=== PATIENT | female | born 1950 | race Caucasian/White ===

== ENCOUNTER 2017-07-19 00:42 | Inpatient (IN) | payer OTHER ==
[2017-07-19] VITALS (7 sets, daily range): BP systolic 89–136; BP diastolic 41–76; Ht 165.1 cm; Wt 59.0 kg
[~2017-07-19] VITALS: Ht 165.1 cm; Wt 59.0 kg
[2017-07-19 02:47] LABS: BASOPHIL % 2.5 % (0-2); PLATELET COUNT 458 x10^3mcL (130-400); RED CELL DISTRIBUTION WIDTH 15.4 % (11.5-14.5)
[2017-07-19 02:53] LABS: CALCIUM 9.3 mg/dL (8.5-10.1); CARBON DIOXIDE 24.8 mmol/L (21-32); POTASSIUM SERUM 3.7 mmol/L (3.5-5.1)
[2017-07-19 02:57] LABS: BILIRUBIN TOTAL 0.43 mg/dL (0.20-1.00); TOTAL PROTEIN, SERUM 7.4 g/dL (6.4-8.2)
[2017-07-19 02:58] LABS: ALBUMIN 3.2 g/dL (3.4-5.0)
[2017-07-19 06:31] LABS: T3 TOTAL 1.51 ng/mL
[2017-07-19 07:03] LABS: CHOLESTEROL/HDL RATIO 4.7; MAGNESIUM 2.4 mg/dL (1.8-2.4); PHOSPHOROUS 2.7 mg/dL (2.5-4.9)
[2017-07-19 07:04] LABS: FREE T4 1.17 ng/dL (0.76-1.46); FREE THYROXINE INDEX 3.5 ug/dL (1.4-4.5)
[2017-07-19 12:10] LABS: microscopic required? NO
[2017-07-19 12:52] LABS: UA SPECIFIC GRAVITY 1.015 (1.005-1.035); urine erythrocyte NEGATIVE (NEGATIVE)
[2017-07-20 01:06] VITALS: BP 116/55
[2017-07-20 05:11] VITALS: BP 115/56
[2017-07-20 06:12] LABS: CALCIUM 8.2 mg/dL (8.5-10.1); CARBON DIOXIDE 27.1 mmol/L (21-32)
[2017-07-20 06:19] LABS: BASOPHIL % 0.8 % (0-2); PLATELET COUNT 360 x10^3mcL (130-400)
[2017-07-20 06:54] LABS: RED CELL DISTRIBUTION WIDTH 15.4 % (11.5-14.5)
[2017-07-20 10:07] VITALS: BP 124/68
[2017-07-20 13:58] VITALS: BP 141/67
[2017-07-20 17:51] VITALS: BP 111/67
[2017-07-20 20:34] VITALS: BP 109/54
[2017-07-21 05:22] VITALS: BP 133/56
[2017-07-21 09:26] VITALS: BP 132/62; BP 142/79
[2017-07-21 12:40] VITALS: BP 127/60
[2017-07-21 17:31] VITALS: BP 108/57
[2017-07-21 21:15] VITALS: BP 117/54
[2017-07-22 05:35] VITALS: BP 118/53
[2017-07-22 06:38] LABS: CALCIUM 8.4 mg/dL (8.5-10.1); CARBON DIOXIDE 25.5 mmol/L (21-32); CHLORIDE SERUM 111 mmol/L (98-107); CREATININE SERUM 0.9 mg/dL (0.6-1.0); GFR1 > 60 mL/min; GLUCOSE SERUM 81 mg/dL (74-106); POTASSIUM SERUM 3.7 mmol/L (3.5-5.1); SODIUM SERUM 144 mmol/L (136-145)
[2017-07-22 06:40] LABS: PLATELET COUNT 327 x10^3mcL (130-400)
[2017-07-22 07:02] LABS: RED CELL DISTRIBUTION WIDTH 15.8 % (11.5-14.5)
[2017-07-22 09:00] VITALS: BP 124/58
[2017-07-22] MEDS ORDERED: WELLBUTRIN XL300 M1 PO (13:40)
[2017-07-22] MEDS ORDERED: PROZ10 PO (13:41)
[2017-07-22] MEDS ORDERED: ABILIFY20 M1 PO (13:41)
[2017-07-22] MEDS ORDERED: DITROPAN XL10 MG PO (13:42)
[2017-07-22] MEDS ORDERED: OMEPRAZOLE40 M1 PO (13:42)
[2017-07-22] MEDS ORDERED: ECO81 PO (13:45)
[2017-07-22] MEDS ORDERED: PEP20 PO (13:47)
[2017-07-22] MEDS ORDERED: LIPITOR80 MG PO (13:48)
[2017-07-22] MEDS ORDERED: BACLOFEN10 MG PO (13:57)
[2017-07-22] MEDS ORDERED: IPRATROPIUM BROM3 M2 HHN (14:11)
[2017-07-22 14:55] VITALS: BP 124/58
== END 2017-07-22 15:39 | disposition home health service (06) | DRG 913 ==
LOC: ED 00:42 → DU 05:21 → MU 05:21 → DU 06:35 → MU 07-21 19:40
PROVIDERS: Emergency Medicine; Family Medicine; ADMIT Family Medicine
DX: S09.90XA Unspecified injury of head, initial encounter (principal); N17.0 Acute kidney failure with tubular necrosis; I69.354 Hemiplegia and hemiparesis following cerebral infarction affecting left non-dominant side; E44.1 Mild protein-calorie malnutrition; E86.0 Dehydration; E83.51 Hypocalcemia; J44.9 Chronic obstructive pulmonary disease, unspecified; I48.0 Paroxysmal atrial fibrillation; M25.551 Pain in right hip; E78.5 Hyperlipidemia, unspecified; E02 Subclinical iodine-deficiency hypothyroidism; M54.40 Lumbago with sciatica, unspecified side; R45.1 Restlessness and agitation; F41.8 Other specified anxiety disorders; Z68.21 Body mass index [BMI] 21.0-21.9, adult; W18.39XA Other fall on same level, initial encounter; Y93.89 Activity, other specified; Y92.018 Other place in single-family (private) house as the place of occurrence of the external cause; Z87.891 Personal history of nicotine dependence
CPT/HCPCS: 83880; 84439; 94150; 97110-GP; 97116-GP; 97530-GP; J2405; J3010; J7030; J7620; J8597; Q0092

== ENCOUNTER 2019-06-08 12:49 | Inpatient (IN) | payer OTHER ==
[~2019-06-08] VITALS: Ht 165.1 cm; Wt 60.8 kg
[~2019-06-08 12:49] MED LIST: ABILIFY20 M1 PO; BACLOFEN10 MG PO; DITROPAN XL10 MG PO; ECO81 PO; IPRATROPIUM BROM3 M2 HHN; LIPITOR80 MG PO; OMEPRAZOLE40 M1 PO; PEP20 PO; PROZ10 PO; WELLBUTRIN XL300 M1 PO
--- NOTE | 2019-06-08 12:57 | NUR ---
PT WHEELCHAIRED TO ACCOMPANIED BY HER
--- NOTE | 2019-06-08 13:08 | NUR ---
PATIENT AAOX4 PRESENTS TO THE ED WITH C/O RUQ FLANK PAIN X 2 DAYS. PT STS THAT SHE ACCIDENTALLY "INHALED SOME POPCORN BUT IT WENT DOWN THE WRONG PIPE AND HAS BEEN IN PAIN EVER SINCE". PT SATS AT 80'S BECAUSE SHE SAYS SHE HOLDS HER BREATH DUE TO THE AMOUNT OF PAIN SHE IS IN. PT ALSO HAS A HX OF COPD BUT IS NOT 02 DEPENDENT. ABD SOFT, NON DISTENDED BUT TENDER ON PALPATION. SKIN DRY, PSORIASIS NOTED, ORAL MEMBRANES DRY. PT PLACED ON ALL MONITORS FOR FURTHER OBSERVATION. RAMURNEY PLACED IN LOW POSITION, SIDE RAILS UP, CALL LIGHT WITHIN REACH.
[2019-06-08 14:04] LABS: microscopic required? NO
[2019-06-08 14:28] LABS: PLATELET COUNT 358 x10^3mcL (130-400)
[2019-06-08 14:29] LABS: urine erythrocyte NEGATIVE (NEGATIVE)
--- NOTE | 2019-06-08 14:29 | NUR ---
MEDICATED PATIENT PER MD ORDERS-- SEE EMR
[2019-06-08 14:46] LABS: RED CELL DISTRIBUTION WIDTH 18.1 % (11.5-14.5)
[2019-06-08 14:54] LABS: AMPHETAMINE QUAL UR POSITIVE (See below)
[2019-06-08 15:19] LABS: CALCIUM 7.7 mg/dL (8.5-10.1); CARBON DIOXIDE 22.1 mmol/L (21-32); CHLORIDE SERUM 101 mmol/L (98-107); CREATININE SERUM 1.1 mg/dL (0.6-1.0); GLUCOSE SERUM 101 mg/dL (74-106); POTASSIUM SERUM 4.3 mmol/L (3.5-5.1); SODIUM SERUM 135 mmol/L (136-145)
[2019-06-08 15:37] LABS: ALKALINE PHOSPHATASE 105 U/L (46-116); ALT/SGPT 6 U/L (14-59); AST/SGOT 13 U/L (15-37); BILIRUBIN TOTAL 0.81 mg/dL (0.20-1.00); CHOLESTEROL 175 mg/dL (<200); LIPASE 4 IU/L (73-393); T4(THYROXINE) 6.1 ug/dL (4.7-13.3)
[2019-06-08 15:44] LABS: ALBUMIN 2.1 g/dL (3.4-5.0); AMYLASE 18 U/L (25-115); HDL CHOLESTEROL 95 mg/dL (40-60); TOTAL PROTEIN, SERUM 6.1 g/dL (6.4-8.2)
[2019-06-08 15:45] LABS: MONOCYTE 9 % (0-7); SEGMENTED NEUTROPHILS 87 % (37-75)
[2019-06-08 15:46] LABS: rbc morphology (normal/abnorm) NORMAL (NORMAL)
[2019-06-08 15:48] LABS: PLATELET MORPHOLOGY PLATELETS NORMAL
--- NOTE | 2019-06-08 15:50 | NUR ---
REPORT GIVEN TO AILEEN TAYLOR FOR CONTINUED CARE OF PATIENT. MD AWAITING RESULTS OF D-DIMER PRIOR TO TRANSPORT.
--- NOTE | 2019-06-08 17:00 | NUR ---
PATIENT RESTING ON GURNEY- NO SS OF DISTRESS NOTED. PT VOICES NO NEEDS AT THIS TIME. WILL CONTINUE TO MONITOR.
[2019-06-08 17:33] VITALS: BP 103/55
--- NOTE | 2019-06-08 18:26 | NUR ---
PATIENT IV BEEPING.-- PTS LINE WAS BLOWN. NEW IV STARTED. OLD LINE DC'D. WILL CONTINUE TO MONITOR.
--- NOTE | 2019-06-08 18:53 | NUR ---
CT SPOKE W/ DR. BAUER ABOUT INFILTRATED IV W/ POSSIBLE EXTRAVASATION OF CONTRAST. HE IS ORDERING ELBOW X-RAY PER HER RECOMMENDATION.
--- NOTE | 2019-06-08 19:16 | NUR ---
REPORT GIVEN TO AILEEN MORATAYA FOR CONTINUED CARE OF PATIENT.
--- NOTE | 2019-06-08 19:20 | NUR ---
PT NOTED 91 ON 3L O2 VIA NC, PT PLACED ON 6 L O2 VIA NC, O2 SAT NOW NOTED AT 94-95%, MD MADE AWARE. PT AWAKE AND ALERT, BREATHING EVEN AND UNLABORED. CM AND [address] IV FLUIDS RUNNING AT ORDERED RATE. IV PATENT WITH NO COMPLICATIONS. WILL CONTINUE TO MONITOR.
--- NOTE | 2019-06-08 20:45 | NUR ---
PT RESTING ON GURNEY WITH HOB RAISED. PT IN NAD, SPEECH REMAINS SLURRED BUT PT IS A&0X4, ANSWERING QUESTIONS APPROPRIATELY. BREATHING EVEN AND UNLABORED. CM AND [address] PT CURRENTLY ON 5L O2 VIA NC AND SATING AT 93-94%. PT IS CALM AND COOPERATIVE. IV FLUIDS RUNNING AT ORDERED RATE. WILL CONTINUE TO MONITOR.
--- NOTE | 2019-06-08 21:30 | NUR ---
PT REQUESTING TO USE BEDPAIN. PT ASSISTED ON AND OFF BEDPAN WITH NO INCIDENCES NOTED. PT MOVED UP IN BED TO POSITION OF COMFORT. PT RESTING ON GURNEY IN NAD, BREATHING EVEN AND UNLABORED. CM AND [address] WILL CONTINUE TO MONITOR. PT AWAKE AND ALERT.
--- NOTE | 2019-06-08 22:30 | NUR ---
PT SLEEPING BUT EASILY AROUSABLE. CM AND [address] PT A&0X4, SPEAKING FULL CLEAR SENTENCES. RESP E/U. WILL CONTINUE TO MONITOR.
--- NOTE | 2019-06-08 23:28 | NUR ---
CALLED AN UPDATE TO TISHA GALLAGHER FOR PT TO TRANSFER UPSTAIRS.
--- NOTE | 2019-06-08 23:59 | NUR ---
PT TRANSFERED TO TELE AT THIS TIME IN NAD, BREATHING EVEN AND UNLABORED. PT AWAKE AND ALERT. PT REMAINS ON 5L 02 VIA GA. PT TRANSFERED VIA [facility] BY MYSELF AND EMELINA EMT. PT VERBALIZED UNDERSTANDING OF PLAN OF CARE. AILEEN GILES AT BEDSIDE TO ASSUME CARE OF PT. PT BELONGINGS TAKEN WITH PT. IV FLUIDS ENDORSED TO TISHA GALLAGHER.
--- NOTE | 2019-06-09 00:10 | NUR ---
RECIEVED PT FROM ED NURSE. PT IN NO APPARENT DISTRESS. PT IS ABLE TO COMMUNICATE NEEDS. L SIDED WEAKNESS NOTED WITH LUE CONTRACTED. PER PT SHE HAD A STROKE BEFORE AND SHE HAD L SIDED WEAKNESS SINCE. NO FACIAL DROOPING NOTED. EQUAL CHEST RISE AND FALL. IV ON RFA IS INTACT AND PATENT. IV FLUIDS AND ZOSYN GIVEN AT THIS TIME. RT AT BEDSIDE FOR EKG. BED IS AT LOWEST SETTING. CALL LIGHT WITHIN REACH. RESOURCE NURSE AT BEDSIDE TO ADMIT PT.
[2019-06-09 00:37] VITALS: BP 118/51
--- NOTE | 2019-06-09 00:48 | NUR ---
RECEIVED PT FROM ER, PT ADMIT FOR PNA, HYPOXIA, PT IS A/O X4, VERBAL RESPONSIVE. PT HAS LEFT FACIAL DROOP DUE TO HX CVA. LUNG SOUND WHEEZING HUY. DENY ANY SOB AT THIS MOMENT, PT IS ON 3L/MIN O2 VIA NC. PO2 94%, PT IS ON TELE 19, SA, DENY ANY CHEST PAIN OR DISCOFORT, BOWEL SOUND PRESENT ALL 4 QUARANTS, NO DISTENTION, NO TENDER. PEDAL PULSE PRESENT BOTH FEET, NO EDEMA, IV AT RIGHT FA, NO LEAKING, NO INFILTRAITON. PT HAS LEFT SIDE WEAKNESS, LEFT ARM AND HAND IS CONTRACTED. ALL ADLS ASSIST, ALL NEED MET, CALL LIGHT IN REACH, WILL CONTINUE TO MONITOR.
--- NOTE | 2019-06-09 01:55 | NUR ---
PT IS RESTING IN BED WITH BOTH EYES CLOSED. BREATHING EVEN AND UNALBORED. NO SIGN OF DISTRESS NOTED. BED IS AT LOWEST SETTING. CALL LIGHT WIHTIN REACH. ON 3L NC. WILL CONTINUE TO MONITOR.
[2019-06-09 04:40] VITALS: BP 120/60
--- NOTE | 2019-06-09 07:01 | NUR ---
PT IS RESTING IN BED. DENIES ANY PAIN OR DISTRESS. NO ACUTE EVENT OCCURED AT NIGHT. BED IS AT LOWEST SETTING. CALL LIGHT WITHIN REACH. WILL ENDORSE TO AM NURSE.
--- NOTE | 2019-06-09 07:05 | NUR ---
RECIEVED PT SITTING UP IN BED, A/O X4 NO C/O MORENO OR DIZZINESS. TELE#19 CONNECTED TO PT, DENIES ANY CP OR PRESSURE. PT FOUND ON 3LPM NC WITH BILAT WHEEZING AND DRY COUGH. LEFT SIDED WEAKNES D/T PREVIOUS CVA. NS 70ML/HR RUNNING IN RFA, INTACT AND PATENT. SAFETY PRECAUTIONS IN PLACE, CALL LIGHT WITHIN REACH, WILL MONITOR.
[2019-06-09 07:08] LABS: CALCIUM 8.1 mg/dL (8.5-10.1); CARBON DIOXIDE 23.1 mmol/L (21-32); CHLORIDE SERUM 108 mmol/L (98-107); CREATININE SERUM 1.1 mg/dL (0.6-1.0); GLUCOSE SERUM 127 mg/dL (74-106); PHOSPHOROUS 3.1 mg/dL (2.5-4.9); POTASSIUM SERUM 4.3 mmol/L (3.5-5.1); SODIUM SERUM 141 mmol/L (136-145)
[2019-06-09 07:15] LABS: PLATELET COUNT 346 x10^3mcL (130-400)
[2019-06-09 07:31] LABS: RED CELL DISTRIBUTION WIDTH 18.4 % (11.5-14.5)
--- NOTE | 2019-06-09 09:04 | NUR ---
MORNING MEDS GIVEN TO PT, TOLERATED WELL. PT STABLE, ENDORSED CARE TO AILEEN COREAS.
[2019-06-09 09:10] VITALS: BP 122/51
--- NOTE | 2019-06-09 09:30 | NUR ---
A&OX4, FOLLOWS COMMANDS, COOPERATES WELL. TELE #19, SINUS ARRYTHMIA AND BRADYCARDIA, PERIPHERAL PULSES AND NO SIGNS OF EDEMA. WHEEZES ON AUSCULTATION, ON NC 3L, O2 SAT 92%. NORMOACTIVE BS, AND INCONTINENT. LEFT SIDED WEAKNESS W/ LEFT HAND AND ARM CONTRACTURE. SKIN IS CDI UPON INSPECTION. RFA IV SITE CDI. PT STATES FREE FROM DISCOMFORT AND PAIN. WILL CONTINUE TO MONITOR PATIENT.
[2019-06-09 12:11] LABS: BAND NEUTROPHIL 2 % (0-10); BASOPHIL 0 % (0-2); MONOCYTE 8 % (0-7); SEGMENTED NEUTROPHILS 85 % (37-75)
[2019-06-09 12:12] LABS: PLATELET MORPHOLOGY PLATELETS NORMAL; rbc morphology (normal/abnorm) ABNORMAL (NORMAL)
[2019-06-09 14:12] VITALS: BP 140/68
[2019-06-09 17:10] VITALS: BP 122/56
--- NOTE | 2019-06-09 18:45 | NUR ---
A&OX4, ARLENNET COOPERATES WELL. TELE #19, SINUS ARRYTHMIA, ON NC 3L, O2 SAT 97%. DENIES DISCOMFORT AND PAIN. RFA IV SITE IS CDI. PATIENT'S QUESTIONS AND CONCERNS ARE ANSWERED. WILL CONTINUE TO ANSWER ANY MORE QUESTIONS NEEDED.
--- NOTE | 2019-06-09 18:51 | NUR ---
NURSING CO-SIGN THE DOCUMENTATION ENTERED BY THE IP HAS BEEN REVIEWED. REVIEWED/CO-SIGNED BY: Coni Ramon DOCUMENTATION DONE BY: ROGER CARLOS RN.
--- NOTE | 2019-06-09 19:30 | NUR ---
PT IS A/O x4. PT HAS NO TEETH AND DENTURES ARE AT HOME. TELE #19, SA. DENIES ANY CHEST PAIN OR PRESSURE. PULSES ARE PRESENT. NO EDEMA NOTED. SLIGHT WHEEZING NOTED ON ALL FEILDS. ON 3L NC. DENIES ANY SOB. EQUAL CHEST RISE AND FALL. NO SIGN OF RESP DISTRESS. BOWEL SOUNDS ACTIVE x4. DENIES ANY ABD PAIN OR DISTRESS. INCONTINENT AT TIMES WITH URINE. L SIDED WEAKNESS FROM PAST CVA, L ARM CONTRACTED. SKIN INTACT. DENIES ANY PAIN AT THIS TIME. IV ON RFA INTACT AND PATENT. NO SIGN OF IRRITAION OR INFILTRATION NOTED. BED IS AT LOWEST SETTIG. CALL LIGHT WITHIN REACH. BED ALARM IS ON. WILL CONTINUE TO [facility].
[2019-06-09 20:35] VITALS: BP 125/60
--- NOTE | 2019-06-10 01:45 | NUR ---
PT IS RESTING IN BED. DENIES ANY PAIN OR DISTRESS. IV INTACT. BED IS AT LOWEST SETTING. CALL LIGHT WITHIN REACH. BED ALARM IS ON. WILL CONTINUE TO MONTIOR.
[2019-06-10 05:10] VITALS: BP 138/77
[2019-06-10 06:24] LABS: PLATELET COUNT 348 x10^3mcL (130-400)
[2019-06-10 06:33] LABS: CALCIUM 8.1 mg/dL (8.5-10.1); CARBON DIOXIDE 22.2 mmol/L (21-32); CHLORIDE SERUM 110 mmol/L (98-107); CREATININE SERUM 1.2 mg/dL (0.6-1.0); GLUCOSE SERUM 111 mg/dL (74-106); PHOSPHOROUS 3.6 mg/dL (2.5-4.9); POTASSIUM SERUM 4.6 mmol/L (3.5-5.1); SODIUM SERUM 145 mmol/L (136-145)
--- NOTE | 2019-06-10 06:36 | NUR ---
PT IS RESTING IN BED. DENIES ANY PAIN OR DISTRESS. DENIES ANY SOB. EQUAL CHEST RISE AND FALL. NO ACUTE EVENT OCCURED AT NIGHT. BED IS AT LOWEST SETTING. CALL LIGHT WITHIN REACH. WILL ENDORSE TO AM NURSE.
--- NOTE | 2019-06-10 07:40 | NUR ---
RECEIVED PT IN BED A/A/OX4 DENIES MORENO. RESP EVEN AND UNLABORED WITH EXP WHEEZING BILAT. ON O2 AT 3L/MIN VIA NC WITH RT PROTOCOL. DENIES ANY SOB/CP/PRESSURE AT THIS TIME. NO EDEMA NOTED WITH IVF TO RFA. ABD SOFT, NONTENDER WITH ACTIVE BS X4. DENIES ANY N/V AT THIS TIME. VOIDING FREELY, DOES REPORT SOME FREQUENCY. HX CVA WITH LT SIDED DEFICIT. NOTED WITH CONTRACTURES TO LUE AND WEAKNESS TO LT SIDE. USES CANE TO AMBULATE. PENDING PT EVAL. CALL LIGHT IN REACH NEEDS ATTENDED TO.
[2019-06-10 07:41] LABS: RED CELL DISTRIBUTION WIDTH 18.1 % (11.5-14.5)
[2019-06-10 08:30] VITALS: BP 166/70
[2019-06-10 09:00] LABS: BAND NEUTROPHIL 0 % (0-10); BASOPHIL 0 % (0-2); SEGMENTED NEUTROPHILS 99 % (37-75)
[2019-06-10 09:01] LABS: rbc morphology (normal/abnorm) ABNORMAL (NORMAL)
[2019-06-10 09:02] LABS: PLATELET MORPHOLOGY PLATELETS NORMAL; ovalocyte/elliptocyte 1+
[2019-06-10 09:15] VITALS: BP 134/79
--- NOTE | 2019-06-10 10:15 | NUR ---
PT RESTING AT THIS TIME. DENIES ANY DISCOMFORT. CALL LIGHT IN REACH NEEDS ATTENDED TO.
--- NOTE | 2019-06-10 12:30 | NUR ---
PT RESTING AT THIS TIME. DENIES ANY PAIN/DISCOMFORT. IVF INFUSING. ASSISTED ONTO BEDPAN. CALL LIGHT IN REACH NEEDS ATTENDED TO.
[2019-06-10 12:43] VITALS: BP 133/67
[2019-06-10 16:42] VITALS: BP 138/73
--- NOTE | 2019-06-10 18:22 | NUR ---
PT RESTING AT THIS TIME DENIES ANY DISCOMFORT. CALL LIGHT IN REACH NEEDS ATTENDED TO.
--- NOTE | 2019-06-10 19:35 | NUR ---
RECEIVED PT LYING IN BED, AAOX4. W/ LEFT FACIAL DROOP AND LEFT SIDED WEAKNESS. ABLE TO FOLLOW COMMANDS. SPEECH IS CLEAR. NO SOB NOTED, LUNG SOUNDS DIMINISHED ON AUSCULTATION. O2 SAT=95%, ON 3LPM/NC. W/ NON-PRODUCTIVE COUGH. DENIES CHEST PAIN/PRESSURE, NSR ON THE MONITOR. DENIES ABDOMINAL DISCOMFORT. URINE INCONTINENT. C/O 5/10 RIGHT HIP PAIN. W/ RUE ECCHYMOSIS, ALEISHA. SIDE RAILS UPX2. CALL LIGHT ON REACH. HOB ELEVATED AT 30 DEG. BED ALARM ON. WILL CONT TO MONITOR
[2019-06-10 20:14] VITALS: BP 137/66
--- NOTE | 2019-06-10 20:24 | NUR ---
NOTED PT ALSO HAS SMALL PINK DISCOLORATION ON BLE, PT STATED THAT SHE HAS HISTORY OF PSORIASIS.
--- NOTE | 2019-06-10 20:52 | NUR ---
REPORT GIVEN TO AILEEN WEEKS FOR CONTINUITY OF CARE
[2019-06-11 05:02] VITALS: BP 148/85
[2019-06-11 06:18] LABS: CALCIUM 8.5 mg/dL (8.5-10.1); CARBON DIOXIDE 29.3 mmol/L (21-32); CHLORIDE SERUM 109 mmol/L (98-107); CREATININE SERUM 1.1 mg/dL (0.6-1.0); GLUCOSE SERUM 115 mg/dL (74-106); MAGNESIUM 2.2 mg/dL (1.8-2.4); PHOSPHOROUS 3.3 mg/dL (2.5-4.9); POTASSIUM SERUM 4.1 mmol/L (3.5-5.1); SODIUM SERUM 146 mmol/L (136-145)
[2019-06-11 07:03] LABS: BASOPHIL % 0 % (0-2); PLATELET COUNT 421 x10^3mcL (130-400)
--- NOTE | 2019-06-11 07:20 | NUR ---
RECEIVED PT IN BED A/A/OX4 DENIES MORENO. HX OF CVA WITH LT SIDED WEAKNESS. NOTED MILD FACIAL DROP AND GRABLED SPEECH. PT HAS CONTRACTURE TO LUE AND LT SIDED WEAKNESS TO LLE WITH SOME LOSS OF SANSATION TO LT SIDE. RESP EVEN AND UNLABORED WITH EXPIRATORY WHEEZING. ON O2 AT 3L/MIN VIA NC WITH RT PROTOCOL. PT NOTED WITH NONPRODUCTIVE COUGH. DENIES ANY SOB/CP/PRESSURE AT THIS TIME. NSR ON TELE. NO EDEMA NOTED WITH IVF TO UPPER RFA. ABD SOFT, NONTENDER WITH ACTIVE BS X4. DENIES ANY N/V AT THIS TIME. OCC STRESS INCONTINENCE REPORTED. DENIES ANY PAIN/BURNING WITH URINATION. MILD ECCHYMOSIS TO RUE. AMBULATES WITH ASSISTANCE AND CANE AT BEDSIDE. UP WITH PT. CALL LIGHT IN REACH NEEDS ATTENDED TO.
[2019-06-11 09:10] VITALS: BP 125/62
--- NOTE | 2019-06-11 11:40 | NUR ---
PT RESTING AT THIS TIME CALL LIGHT IN REACH NEEDS ATTENDED TO.
[2019-06-11 12:26] VITALS: BP 144/75
[2019-06-11 15:20] VITALS: BP 144/75
--- NOTE | 2019-06-11 16:00 | NUR ---
PT RESTING AT THIS TIME, REPORTS IMPROVEMENT WITH SOB. CONT WITH NONPRODUCTIVE COUGHT STARTED ON MUCINEX. CALL LIGHT IN REACH NEEDS ATTENDED TO.
[2019-06-11 17:21] VITALS: BP 129/99
--- NOTE | 2019-06-11 18:45 | NUR ---
PT RESTING AT THIS TIME. DENIES ANY DISCOMFORT. CALL LIGHT IN REACH WITH IVF INFUSING WELL.
--- NOTE | 2019-06-11 19:20 | NUR ---
RECEIVED PT FROM PREVIOUS SHIFT NURSE. PT AOX4, L. FACIAL DROOP NOTED. SPEECH CLEAR, DENIES MORENO/DIZZINESS. ON TELE #19, READING SR, HR 77. DENIES CP/PRESSURE. WHEEZES HEARD UPON AUSCULTATION, ON 2L NC. DENIES SOB/DIFFICULTY BREATHING. IV TO R. HAND, INTACT AND PATENT. BED IN LOWEST POSITION. CALL LIGHT WITHIN REACH. WILL CONTINUE TO MONITOR.
[2019-06-11 20:24] VITALS: BP 141/75
--- NOTE | 2019-06-12 02:53 | NUR ---
PT RESTING IN BED. RR EVEN AND UNLABORED. IN NO ACUTE DISTRESS. CALL LIGHT WITHIN REACH. BED IN LOWEST POSITION. WILL CONTINUE TO MONITOR.
[2019-06-12 05:28] VITALS: BP 147/79
--- NOTE | 2019-06-12 07:13 | NUR ---
REPORT TAKEN FROM [employer]IT[employer]CHANGE WIRELESS MANAGER NURSE AT THE BEDSIDE, PATIENT AWAKE AND ALERT, REPORTS NO NEW NEEDS AT THIS TIME, WILL CONTINUE TO MONITOR.
[2019-06-12 09:36] VITALS: BP 160/92
[2019-06-12 09:38] LABS: BASOPHIL % 0.6 % (0-2)
[2019-06-12 09:41] LABS: PLATELET COUNT 457 x10^3mcL (130-400); RED CELL DISTRIBUTION WIDTH 18.3 % (11.5-14.5)
[2019-06-12 09:52] LABS: CALCIUM 8.5 mg/dL (8.5-10.1); CARBON DIOXIDE 31.6 mmol/L (21-32); CHLORIDE SERUM 107 mmol/L (98-107); CREATININE SERUM 1.1 mg/dL (0.6-1.0); GLUCOSE SERUM 103 mg/dL (74-106); PHOSPHOROUS 2.9 mg/dL (2.5-4.9); POTASSIUM SERUM 3.6 mmol/L (3.5-5.1); SODIUM SERUM 145 mmol/L (136-145)
--- NOTE | 2019-06-12 10:25 | NUR ---
PATIENT FOUND TO HAVE SWELLING AND REDNESS TO RIGHT WRIST AT THIS TIME AT IV SITE. IV REMOVED AND DRESSED WITH GAUZE AND COBAN, MILD PRESSURE APPLIED WITH COOL COMPRESS. PATIENT TAKEN DOWN FOR BRONCOSCOPY AT THIS TIME, HERAT MONITOR TAKEN TO STATION AND PUT ON STAND BY
--- NOTE | 2019-06-12 14:19 | NUR ---
PATIENT RETURNED FROM BRONCHOSCOPY AT 1341, AWAKE AND ALERT, IN NO ACUTE DISTRESS, DENIED PAIN OR DISCOMFORT. VITALS ASSESSED AND FOUND TO BE WNL FOR THE PATIENT, BP 133/72, HR 80, O3 96 ON 3L NC, TEMP 98.7. IV TO THE RIGHT EJ PATENT WITH DRESSING CDI, WILL CONTINUE TO MONITOR.
[2019-06-12 17:31] VITALS: BP 129/70
--- NOTE | 2019-06-12 19:12 | NUR ---
REPORT GIVEN TO HAND TAPPER NURSE, CARE ENDORSED
--- NOTE | 2019-06-12 19:33 | NUR ---
ALERT AND VERBALLY RESPONSIVE.NOTED TO HAVE FACIAL DROOP,LEFT SIDED WEAKNESS DUE TO CVA. SKIN WARM AND DRY TO TOUCH WITH RIGHT ARM ECCHYMOSIS ALEISHA. RESPIRATION EVEN AND UNLABORED. BED IN LOWEST POSITIOM . CALL LIGHT WITHIN REACH. NSR ON STAKE SETTER #19. DENIES ANY CHEST DISCOMFORT. WILL CONTINUE TO MONTOR.
[2019-06-12 20:40] VITALS: BP 122/76
--- NOTE | 2019-06-13 | NUR ---
CONTNUES ON ATB IVPB FOR MANAGEMENT OF PEUMONIA WITHOUT ADVERSE REACTION NOTED. INCONTINENT OF BLADDER FUNCTION. GOOD PERICAR RENDERED. KEPT CLEAN AND DRY.
[2019-06-13 05:00] VITALS: BP 149/79
--- NOTE | 2019-06-13 05:33 | NUR ---
QUIET IN BED , RESPIRATION EVEN AND UNLABORED. NO S/S OF ACUTE DISTRESS. ALL NEEDS ATTENDED.
[2019-06-13 06:28] LABS: CALCIUM 8.6 mg/dL (8.5-10.1); CARBON DIOXIDE 32.4 mmol/L (21-32); CHLORIDE SERUM 105 mmol/L (98-107); CREATININE SERUM 0.9 mg/dL (0.6-1.0); GLUCOSE SERUM 108 mg/dL (74-106); MAGNESIUM 2.3 mg/dL (1.8-2.4); PHOSPHOROUS 3.6 mg/dL (2.5-4.9); SODIUM SERUM 145 mmol/L (136-145)
[2019-06-13 06:48] LABS: BASOPHIL % 0.1 % (0-2)
[2019-06-13 06:55] LABS: PLATELET COUNT 415 x10^3mcL (130-400); RED CELL DISTRIBUTION WIDTH 18.1 % (11.5-14.5)
--- NOTE | 2019-06-13 07:10 | NUR ---
RECIEVED PT SITTING UP IN BED WITH NO C/O PAIN OR DISTRESS. A/O X4 WITH NO MORENO OR DISSINESS. TELE #19 CONNECTED TO PT, DENIES CP OR PRESSURE. PT ON 2LPM O2 NC, NO SOB NOTED. LEFT SIDED WEAKNESS. PT FOUND WITH NS RUNNING AT 5ML/HR TKO IN RIGHT SIDE OF NECK, IV PATENT WITH NO INFILTRATION NOTED. SAFETY PRECAUTIONS IN PLACE, CALL LIGHT WITHIN REACH, WILL MONITOR.
[2019-06-13 08:30] VITALS: BP 135/74
--- NOTE | 2019-06-13 11:03 | NUR ---
TYLENOL GIVEN PER EMAR FOR C/O 6/10 FOOT SCIATIC PAIN, WILL REASSESS.
[2019-06-13] MEDS ORDERED: LEVOFLOXACIN500 M1 PO (11:31)
[2019-06-13] MEDS ORDERED: PREDNISONE20 MG PO (11:31)
[2019-06-13 12:39] VITALS: BP 122/70
[2019-06-13 13:42] VITALS: BP 122/70
[2019-06-13 15:04] VITALS: Ht 165.1 cm; Wt 60.8 kg
--- NOTE | 2019-06-13 15:30 | NUR ---
PT STABLE WITH NO C/O PAIN OR DISTRESS. SAFETY PRECAUTIONS IN PLACE, CALL LIGHT WITHIN REACH, WILL MONITOR.
[2019-06-13 16:29] VITALS: BP 121/63
--- NOTE | 2019-06-13 17:38 | NUR ---
PT STABLE AT THIS TIME WITH NO C/O PAIN OR DISTRESS. A/O X4 WITH NO MORENO OR DIZZINESS. TELE #19 CONNECTED TO PT, DENIES ANY CP OR PRESSURE. PT ON RA AND TOLERATING WELL, SAT AT 93% WITH NO SOB NOTED. PT OK TO DISCHARGE AFTER OXYGEN IS DELIVERED. IV TO RIGHT JUGULAR INTACT AND PATENT, NO REDNESS/ INFLAMMATION NOTED. SAFETY PRECAUTIONS IN PLACE, CALL LIGHT WITHIN REACH, WILL ENDORSE TO NIGHT NURSE.
--- NOTE | 2019-06-13 19:23 | NUR ---
RECEIVED AWAKE AND VERBALLY RESPONSIVE. ABLE TO MAKE NEEDS KNOWN. SKIN WARM AND DRY TO TOUCH. RESPIRATION EVEN AND UNLABORED. ON ROOM AIR SATURATING AT 95%. NO S/S OF ACUTE RESPIRATORY DISTRES. FOR DISCHARGE TODAY WAITING FOR THE HOME O2 TO BE DELIVERED. DISCHARGE INSTRUCTIONS GIVEN, PT VERBALIZED UNDERSTANDING.
--- NOTE | 2019-06-13 21:00 | NUR ---
SPOKEN WITH NYA AT HOME FOR HOME 02 DELIVERY FOR PT TO TAKE WITH HER UPON DISCHARGE TONIGHT. NYA STATED THAT THE FAMILY HELPER IS ABOUT 5 MIN AWAY. PTS MADE AWARE.
--- NOTE | 2019-06-13 21:00 | NUR ---
ALL DUE MEDICATIONS GIVEN AND WELL TOLERATED. NO S/S O ASPIRATION NOTED. NO AVERSE REACTION NOTED FROM [facility] THERAPY. HERE TO EMPLOYEE BENEFITS MANAGER PATIENT STILL AWAITING FOR THE DELEIVERY OF HOME 02.
--- NOTE | 2019-06-13 21:26 | NUR ---
02 WAS DELIVEREED, DISCHARGE INSTRUCTIONS GIVEN TO PATIENT AND ., BOTH VERBALIZED UNDERSTANDING. IV ACCESS AT THE RIJ REMOVED WITH, NO ACTIVE BLEEDING NOTED. PRESSURE DRESSING APPLIED TO AFFECTED AREA.
--- NOTE | 2019-06-13 21:28 | NUR ---
DISCHARGED VIA WHEELCHAIR ACCOMPANIED BY RN VIA PRIVATE CAR WITH IN STABLE CONDITION. PT ALERT AND ORIENTED AT THE TIME OF DISCHARGE. VITAL SIGNS TAKEN T=97.6, HR=78, R=20, AI=803/74 MAP-87, OQ SAT 95 % ON 02 AT 2L/NC. DICAHRGE PAPERS GIVEN TO .
== END 2019-06-13 21:28 | disposition home or self-care (01) | DRG 177 ==
LOC: ED 12:49 → DU 15:08
PROVIDERS: Emergency Medicine; Internal Medicine; ADMIT Family Medicine
DX: J69.0 Pneumonitis due to inhalation of food and vomit (principal); J96.01 Acute respiratory failure with hypoxia; E43 Unspecified severe protein-calorie malnutrition; I69.354 Hemiplegia and hemiparesis following cerebral infarction affecting left non-dominant side; J90 Pleural effusion, not elsewhere classified; F15.20 Other stimulant dependence, uncomplicated; E87.1 Hypo-osmolality and hyponatremia; K21.9 Gastro-esophageal reflux disease without esophagitis; E86.0 Dehydration; J44.9 Chronic obstructive pulmonary disease, unspecified; L40.9 Psoriasis, unspecified; I10 Essential (primary) hypertension; F32.9 Major depressive disorder, single episode, unspecified; F12.20 Cannabis dependence, uncomplicated; R32 Unspecified urinary incontinence; Z99.3 Dependence on wheelchair; Z68.24 Body mass index [BMI] 24.0-24.9, adult; Z87.891 Personal history of nicotine dependence
CPT/HCPCS: 36600; 83880; 85378; 97116-GP; 97530-GP; G0378; J0132; J0456; J1885; J2543; J2920; J2930; J3010; J7030; J7613; J7620; J7633; J7644; Q0092; Q9967

== ENCOUNTER 2019-11-25 10:21 | Inpatient (IN) | payer OTHER ==
[~2019-11-25] VITALS: Ht 163.8 cm; Wt 57.4 kg
[~2019-11-25 10:21] MED LIST changes: +LEVOFLOXACIN500 M1 PO; +PREDNISONE20 MG PO
[2019-11-25 11:24] LABS: CALCIUM 8.8 mg/dL (8.5-10.1); CARBON DIOXIDE 23.1 mmol/L (21-32); CHLORIDE SERUM 101 mmol/L (98-107); CREATININE SERUM 0.9 mg/dL (0.6-1.0); GLUCOSE SERUM 125 mg/dL (74-106); POTASSIUM SERUM 3.6 mmol/L (3.5-5.1); SODIUM SERUM 138 mmol/L (136-145)
[2019-11-25 11:34] LABS: ALBUMIN 2.8 g/dL (3.4-5.0); ALKALINE PHOSPHATASE 103 U/L (46-116); ALT/SGPT 16 U/L (14-59); AST/SGOT 15 U/L (15-37); BILIRUBIN TOTAL 0.3 mg/dL (0.20-1.00)
[2019-11-25 12:04] LABS: PLATELET COUNT 337 x10^3mcL (130-400); RED CELL DISTRIBUTION WIDTH 15.7 % (11.5-14.5)
[2019-11-25 12:05] LABS: BASOPHIL % 0.1 % (0-2)
[2019-11-25 13:52] VITALS: BP 127/110
[2019-11-25 13:56] VITALS: Ht 163.8 cm; Wt 57.4 kg
[2019-11-25 16:22] LABS: microscopic required? YES; urine erythrocyte 1+ (NEGATIVE)
[2019-11-25 17:15] VITALS: BP 123/40
[2019-11-25 20:00] VITALS: BP 158/80
[2019-11-26 00:30] VITALS: BP 158/80
[2019-11-26 06:24] VITALS: BP 116/61
[2019-11-26 07:25] LABS: BASOPHIL % 0.3 % (0-2); PLATELET COUNT 327 x10^3mcL (130-400)
[2019-11-26 07:56] LABS: T4(THYROXINE) 8.7 ug/dL (4.7-13.3)
[2019-11-26 08:06] LABS: RED CELL DISTRIBUTION WIDTH 15.4 % (11.5-14.5)
[2019-11-26 09:22] VITALS: BP 152/68
[2019-11-26 12:36] LABS: ERYTHROCYTE SED RATE 45 mm/hr (0-30)
[2019-11-26 13:20] VITALS: BP 156/85
[2019-11-26 16:34] VITALS: BP 156/90
[2019-11-26 20:49] VITALS: BP 134/82
[2019-11-27 04:05] LABS: RAPID PLASMA REAGIN Non Reactive (Non Reactive)
[2019-11-27 05:28] VITALS: BP 174/88
[2019-11-27 06:22] LABS: BASOPHIL % 0.4 % (0-2); PLATELET COUNT 367 x10^3mcL (130-400)
[2019-11-27 06:33] LABS: RED CELL DISTRIBUTION WIDTH 15.9 % (11.5-14.5)
[2019-11-27 06:40] LABS: CALCIUM 8.8 mg/dL (8.5-10.1); CARBON DIOXIDE 23.1 mmol/L (21-32); CHLORIDE SERUM 104 mmol/L (98-107); CREATININE SERUM 0.9 mg/dL (0.6-1.0); GLUCOSE SERUM 101 mg/dL (74-106); POTASSIUM SERUM 3.7 mmol/L (3.5-5.1); SODIUM SERUM 139 mmol/L (136-145)
[2019-11-27 06:50] VITALS: BP 137/96
[2019-11-27 08:42] VITALS: BP 153/68
[2019-11-27 09:07] LABS: RHEUMATOID ARTHRITIS FACTOR 11.1 IU/mL (0.0-13.9)
[2019-11-27 13:25] VITALS: BP 150/65
[2019-11-27 17:43] VITALS: BP 127/63
[2019-11-27 19:34] VITALS: BP 127/63
== END 2019-11-27 21:10 | disposition short-term general hospital (02) | DRG 64 ==
LOC: ED 10:21 → DU 12:02
PROVIDERS: Emergency Medicine; ADMIT Internal Medicine
DX: I63.231 Cerebral infarction due to unspecified occlusion or stenosis of right carotid arteries (principal); I63.81 Other cerebral infarction due to occlusion or stenosis of small artery; I69.354 Hemiplegia and hemiparesis following cerebral infarction affecting left non-dominant side; I69.392 Facial weakness following cerebral infarction; G83.21 Monoplegia of upper limb affecting right dominant side; R13.10 Dysphagia, unspecified; R47.81 Slurred speech; R29.708 NIHSS score 8; I10 Essential (primary) hypertension; K21.9 Gastro-esophageal reflux disease without esophagitis; J45.909 Unspecified asthma, uncomplicated; Z68.22 Body mass index [BMI] 22.0-22.9, adult
CPT/HCPCS: 82962; 86431; 92526-GN; 92610-GN; 97530-GP; G0378; J1885; J7512; Q0092; Q9967